=== PATIENT | male | born 1945 | race African-American/Black ===

== ENCOUNTER → 2016-09-25 14:18 | Outpatient (CLI) | payer MEDICARE | END | disposition home or self-care (01) | LOC: D.MRI 14:18 | DX: M54.12 Radiculopathy, cervical region (principal) ==

== ENCOUNTER 2017-03-27 05:20 | Inpatient (IN) | payer MEDICARE ==
--- NOTE | 2017-03-26 15:08 | NUR ---
SPOKE WITH [facility]. CARDIAC CLEARANCE PENDING.
--- NOTE | 2017-03-26 15:18 | NUR ---
CARDIAC CLEARANCE PER DR. TIPTON.
[2017-03-26 15:36] LABS: HEMATOCRIT 39.1 % (42.0-54.0); HEMOGLOBIN 14.5 g/dL (13.5-17.5); MCH 29.7 pg (26.0-34.0); MCHC 37.1 g/dL (31.0-37.0); MCV 80.1 fL (80.0-100.0); MEAN PLATELET VOLUME 9.9 fL (7.4-10.4); RBC 4.88 10x6/uL (4.20-6.10); RDW 12.1 % (11.5-14.5)
[2017-03-26 15:46] LABS: CALC OSMOLALITY 280 mosm/kg (275-300); CALCIUM 9.3 mg/dL (8.5-10.1); CARBON DIOXIDE 28.4 mmol/L (21.0-32.0); CHLORIDE - SERUM 102 mmol/L (98-107); GLUCOSE 261 mg/dL (74-106); POTASSIUM - SERUM 4.1 mmol/L (3.5-5.1); SODIUM 136 mmol/L (136-145); UREA NITROGEN 12 mg/dL (7-18); eGFR NON AFRICAN AMERICAN 79 mL/min (90-120)
[~2017-03-27] VITALS: Ht 177.8 cm; Wt 101.0 kg
[2017-03-27] VITALS (18 sets, daily range): BP systolic 141–185; BP diastolic 66–89; BMI 32.7
[~2017-03-27 05:20] MED LIST: CARDIZEM CD240 MG PO; GLIPIZIDE-METFO1 TA5 PO; HYTRIN5 MG PO; MAXZIDE 75/501 TAB PO; MOBIC7.5 MG PO; PROAIR HFA8.5 GM INH
--- NOTE | 2017-03-27 12:10 | NUR ---
RECEIVED PT TO ROOM CV5 VIA BED. ICU MONITORS CONNECTED. PT ASSESSED. VSS, SR ON CM. CALL LIGHT WITHIN REACH.
--- NOTE | 2017-03-27 15:15 | NUR ---
REASSESSMENT VIA FLOWSHEET, SEE FOR DETAILS.
--- NOTE | 2017-03-27 17:00 | NUR ---
PT INCISION REMAINS FREE OF DRAINAGE OR SWELLING. NEURO CHECKS WNL. VSS, SR ON CM. PT VOICES NO ADDITIONAL NEEDS AT THIS TIME. CALL LIGHT WITHIN REACH.
--- NOTE | 2017-03-27 19:00 | NUR ---
REPORT RECEIVED AND ASSESSMENT COMPLETED. PT IS POST OP ACD/ACF BY DR MENDOZA. NO SIGNS OF COMPLICATIONS AT THIS TIME. WILL MONITOR THROUGHOUT SHIFT
--- NOTE | 2017-03-27 21:00 | NUR ---
2100 MEDS GIVEN EARLY DUE TO ELEVATED B/P. WILL MONITOR CLOSELY.
--- NOTE | 2017-03-27 23:00 | NUR ---
REASSESSMENT COMPLETED. MD CONTACTED IN REGARD TO B/P. NEW ORDERS RECEIVED. WILL MONITOR
[2017-03-28] VITALS (9 sets, daily range): BP systolic 151–163; BP diastolic 71–80; Ht 177.8 cm; Wt 101.0 kg
--- NOTE | 2017-03-28 01:00 | NUR ---
COMPLETE LINEN CHANGE PERFORMED. WILL CONTINUE TO MONITOR
--- NOTE | 2017-03-28 03:00 | NUR ---
REASSESSMENT COMPLETED AT THIS TIME. SEE FLOWSHEET FOR FULL DETAILS. PT STILL RESTING IN BED AT THIS TIME. B/P IN THE 150'S. DENIES PAIN AT THIS TIME. NO SIGNS OF COMPLICATION. WILL MONITOR
--- NOTE | 2017-03-28 05:00 | NUR ---
NO CHANGES IN STATUS AT THIS TIME. WILL CONTINUE TO MONITOR
--- NOTE | 2017-03-28 07:15 | NUR ---
SHIFT ASSESSMENT VIA FLOWSHEET, SEE FOR DETAILS. VSS, SR ON CM. NEURO CHECKS WNL. INCISION CDI, NO SIGNS OF SWELLING OR BLEEDING.
--- NOTE | 2017-03-28 10:06 | NUR ---
SPOKE WITH DR MENDOZA'S OFFICE, FOLLOWUP APPOINTMENT SCHEDULED.
--- NOTE | 2017-03-28 10:13 | NUR ---
Patient Name: NEYMAR VOGT Admission Status: Elective Accout number: [id number] Admission Date: 03-27-2017 : 1945 Admission Diagnosis: Attending: YINA MENDOZA Current LOS: 1 Anticipated DC Date: 03-28-2017 Planned Disposition: Inpatient Rehab Primary Insurance: MEDICARE A & B Discharge Planning Comments: CM met with patient, spouse and son regarding discharge planning / needs. Patient and family state DC plan is to return home with . States son is planning to stay with parents and assist with any needs. States home environment is safe. Son states that patient's room is upstairs so family plans to move patient's bed downstairs while recovering. Patient and family deny need for home health or other community services. Deny and discharge planning needs at this time. CM will continue to follow and assist as needed with discharge planning / needs. Patients son will transport patient home upon discharge. Is the patient Alert and Oriented? Yes * How many steps to enter\exit or inside your home? 0 * PCP DR TRAE MARTÍNEZ * [facility] * Preadmission Environment Home with Family * ADLs Independent * Equipment None * List name and contact numbers for known caregivers / representatives who currently or will assist patient after discharge: Silvia Vogt, Spouse, Home: * Community resources currently utilized None * Additional services required to return to the preadmission environment? No * Can the patient safely return to the preadmission environment? Yes * Has this patient been hospitalized within the prior 30 days at any hospital? No Textile Bag Sewer: Susannah Mcduffie
--- NOTE | 2017-03-28 10:25 | NUR ---
LEFT HAND PIV D/C'D WITH CATH TIP INTACT. DISCHARGE TEACHING PROVIDED, PT VERBALIZES UNDERSTANDING. VSS.
--- NOTE | 2017-04-11 09:58 | OP ---
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 PROCEDURE: Anterior cervical plate and screws, midline plate, PEEK interbody cages, ViaCell bone stem cell allograft. Please note that the plate was separate from the PEEK interbody cages. DESCRIPTION OF TECHNIQUE: After induction of general endotracheal anesthesia, the patient was placed supine on the operating table with interscapular roll. The neck was prepped and draped in usual sterile fashion. Fluoroscopic x-ray and [place] dissector localized the C5 vertebral body. A transverse skin incision was carried out from the midline to the sternocleidomastoid muscle. The platysma was divided with Bovie cautery. Using blunt and sharp dissection with Metzenbaum scissors, I proceeded in an avascular plane medial to the carotid sheath. The longus colli muscles were elevated from bodies of C4, C5, and C6. C4-C5 and C5-C6 interspace was identified. A self-retaining retractor was placed deep to the longus colli muscles. [employer] distracting pins were place by the C4, C5, and C6. Each disc space was incised with #11 blade. Osteophytes were drilled away posteriorly with Midas-Porter drill at C5-C6 and large disc herniation was removed at C4-C5 on the right side. Next, a PEEK interbody cage was placed in the C4-C5 interspace 7 mm in width and 8 mm in width at the C5-C6 interspace with a separate plate and screws. Midline plate was used to span C4, C5, and C6 vertebral bodies. Three separate midline self-drilling screws 18 mm x 4 mm were placed in each of the 3 holes of the plate. The locking cams were tightened down over the screw heads. Meticulous hemostasis was maintained throughout the wound. Good position of the hardware was confirmed with the fluoroscopic x-ray. The platysma and subdermal layer were closed with interrupted 3-0 Vicryl suture. The skin was reapproximated with Steri-Strips and benzoin. Sterile dressing was applied to the wound. The patient was awakened in good condition and taken to recovery. All counts were reported as correct. Estimated blood loss was minimal. TRANSINT:[id number] Voice Confirmation ID: [id number] DOCUMENT ID: [id number] YINA MENDOZA MD at 0958 CC: [id number] DICTATION DATE: 04/10/172136 GRIP ASSEMBLER: 04/11/17 0711 DIS IN 03/28/17 [facility] [address] [place] [address]
--- NOTE | 2017-06-01 15:44 | DS ---
PATIENT:NEYMAR VOGT :[birth year] MEDICAL RECORD: [id number] DISCHARGE SUMMARY ADMISSION DATE: 03/27/17 DISCHARGE DATE: 03/28/17 ADMISSION DIAGNOSES: Osteophyte formation and disc herniations at C4-C5 and C5-C6. DISCHARGE DIAGNOSES: Status post anterior cervical discectomy and fusion at C4-C5 and C5-C6. HOSPITAL COURSE: The patient was admitted as an outpatient for surgery. She tolerated the procedure well, was observed overnight in the ICU, then discharged home on the following morning. She will return to clinic in [address] Bedolla. DIET: Regular. DISCHARGE MEDICATIONS: Same as admission medications with addition of [place] 10 one to two every 3 hours p.r.n. pain. TRANSINT:[id number] Voice Confirmation ID: [id number] DOCUMENT ID: [id number] YINA BEDOLLA MD at 1544 CC: [id number] DICTATION DATE: 05/30/17 1201 INTERNAL MEDICINE VETERINARY TECHNICIAN: 05/31/17 0222 DIS IN 03/28/17 [id number] [place] [address]
== END 2017-03-28 10:30 | disposition home or self-care (01) | DRG 473 ==
LOC: D.SDCHOLD 05:20 → D.CVICU 11:47
PROVIDERS: Anesthesiology; ADMIT Neurological Surgery
PROC: 0RB30ZZ Excision of Cervical Vertebral Disc, Open Approach (ICD-10-PCS; 2017-03-27)
PROC: 0RG20K0 Fusion of 2 or more Cervical Vertebral Joints with Nonautologous Tissue Substitute, Anterior Approach, Anterior Column, Open Approach (ICD-10-PCS; 2017-03-27)
PROC: 0RG20A0 Fusion of 2 or more Cervical Vertebral Joints with Interbody Fusion Device, Anterior Approach, Anterior Column, Open Approach (ICD-10-PCS; principal; 2017-03-27 07:30)
DX: M50.021 Cervical disc disorder at C4-C5 level with myelopathy (principal); M50.122 Cervical disc disorder at C5-C6 level with radiculopathy; M50.022 Cervical disc disorder at C5-C6 level with myelopathy; M25.78 Osteophyte, vertebrae; E11.9 Type 2 diabetes mellitus without complications; I10 Essential (primary) hypertension

== ENCOUNTER 2018-02-15 09:05 | Day surgery (SDC) | payer MEDICARE ==
[~2018-02-15] VITALS: Ht 177.8 cm; Wt 99.8 kg
--- NOTE | ~2018-02-15 | OP ---
PATIENT NAME: NEYMAR VOGT MEDICAL RECORD: [id number] :49 LOCATION:[facility] ADMISSION DATE: SURGEON: COSTA MCBRIDE DO DATE OF OPERATION: 02/15/2018 PROCEDURE PERFORMED: Open revision right carpal tunnel release. PREOPERATIVE DIAGNOSIS: Severe right carpal tunnel syndrome, recurrent. POSTOPERATIVE DIAGNOSIS: Severe right carpal tunnel syndrome, recurrent. INDICATIONS: Mr. Vogt is a 72-year-old male who had his carpal tunnels released approximately 20 years ago. He has since developed in the last few years, continued numbness in the right hand in the distribution of the median nerve. I saw him in the clinic back in October and finally got a nerve conduction study, which revealed complete blockage of his median nerve distally at the carpal tunnel, it was blocked. I discussed this with him over the phone and asked him what he wanted to do, he said wanted to surgery to release it. I told him that due to the severity, he may not get a feeling back into his hand, but it would help with the pain, releasing that nerve. He was okay with that and consented to the procedure. SURGEON: Costa Mcbride DO DESCRIPTION OF THE PROCEDURE: The patient was taken to the operative suite, laid in supine position, given general anesthetic and 2 grams Ancef. The right upper extremity was prepped and draped in sterile fashion. Time out was performed. Everyone was in agreement with the correct side, site, patient, and procedure. An Esmarch was then used to exsanguinate the right upper extremity and was inflated to 250 mmHg. Tourniquet was up for 8 minutes during the procedure. Incision was used, the old incision in the palm of the hand. Dissection was made down to the transverse carpal ligament, was quite thickened and the 15 blade scalpel was used to dissect down to the median nerve. This was exposed. A nasal speculum was then used to open up proximally and distally in order to release the transverse carpal ligament. The nerve was completely released at that time distally and proximally ulnarly and radially. All adhesions were broken to see if it was freed up. The tourniquet was then let down and the bleeders were coagulated at that time with a pickup and a Bovie and then 10 mL of 0.25% Marcaine with epinephrine were injected around the site. The site was then thoroughly irrigated and the incision was closed with 3-0 nylon with horizontal mattress and simple sutures. Adaptic, 4 x 4's, Kerlix, and Coban were then lightly wrapped on the hand. The patient was awakened and taken to recovery in stable condition. ESTIMATED BLOOD LOSS: Minimal. TOURNIQUET TIME: 8 minutes. COMPLICATIONS: None. TRANSINT:[id number] Voice Confirmation ID: [id number] DOCUMENT ID: [id number] OPERATIVE REPORT [id number] NEYMAR VOGT MICHAEL D, DO at 0843 CC: [id number] DICTATION DATE: 02/15/18 1353 EMBROIDERER: 02/15/18 2104 [facility] 02/15/18 [id number] [place] [address]
[2018-02-15 09:48] LABS: CALC OSMOLALITY 290 mosm/kg (275-300); CALCIUM 9.1 mg/dL (8.5-10.1); CARBON DIOXIDE 29.7 mmol/L (21.0-32.0); CHLORIDE - SERUM 104 mmol/L (98-107); GLUCOSE 258 mg/dL (74-106); POTASSIUM - SERUM 3.6 mmol/L (3.5-5.1); SODIUM 141 mmol/L (136-145); UREA NITROGEN 16 mg/dL (7-18); eGFR NON AFRICAN AMERICAN 78 mL/min (90-120)
[2018-02-15 09:53] LABS: APTT 26.2 SECONDS (22.8-39.4); INR 1.03 (0.85-1.17); PROTIME 13.1 SECONDS (11.6-15.0)
[2018-02-15 10:14] LABS: HEMATOCRIT 36.4 % (42.0-54.0); HEMOGLOBIN 13.1 g/dL (13.5-17.5); LYMPHOCYTES 34.1 % (15-50); MCH 29.2 pg (26.0-34.0); MCV 81.3 fL (80.0-100.0); MEAN PLATELET VOLUME 10.2 fL (7.4-10.4); NEUTROPHILS 53.8 % (40-80); PLATELET COUNT 197 10x3/uL (130-400); RBC 4.48 10x6/uL (4.20-6.10); RDW 12.2 % (11.5-14.5); WBC 4.2 10x3/uL (4.8-10.8)
[2018-02-15 10:48] VITALS: BP 173/89; Ht 177.8 cm; Wt 99.8 kg
[2018-02-15] MEDS ORDERED: PERCOCET 5-3251 TAB PO (13:49)
[2018-02-15] MEDS ORDERED: DURICEF500 MG PO (13:49)
== END 2018-02-15 15:10 | disposition home or self-care (01) ==
LOC: D.OPS 09:05
PROVIDERS: Anesthesiology
DX: G56.01 Carpal tunnel syndrome, right upper limb (principal)